=== PATIENT | female | born 1975 | race African-American/Black ===

== ENCOUNTER 2021-11-23 21:24 | Emergency (ER) | payer MEDICAID, OTHER ==
[~2021-11-23] VITALS: Ht 154.9 cm; Wt 48.0 kg
[2021-11-23 21:42] VITALS: BP 139/73
== END 2021-11-23 22:30 | disposition left against medical advice (07) ==
LOC: ER 21:24
DX: Z53.21 Procedure and treatment not carried out due to patient leaving prior to being seen by health care provider (principal); Z88.1 Allergy status to other antibiotic agents; Z88.2 Allergy status to sulfonamides; Z88.3 Allergy status to other anti-infective agents; Z86.16 Personal history of COVID-19; Z86.79 Personal history of other diseases of the circulatory system
CPT/HCPCS: 93005